=== PATIENT | male | born 1975 | race Caucasian/White ===

== ENCOUNTER 2017-08-25 09:09 | Emergency (ER) | payer OTHER ==
[~2017-08-25] VITALS: Ht 177.8 cm; Wt 99.8 kg
[2017-08-25 09:23] LABS: BASO % 0.7 % (0.0-1.0); EOS # 0.2 10*3/uL (0.0-0.4); HEMATOCRIT 44.2 % (42.0-52.0); HEMOGLOBIN 14.8 g/dl (14.0-18.0); LYMPH # 1.2 10*3/uL (1.3-4.4); LYMPH % 22.2 % (27.0-41.0); MEAN CELL VOLUME 90.4 fl (80.0-94.0); MEAN CORPUSCULAR HGB 30.3 pg (27.0-31.0); MEAN CORPUSCULAR HGB CONC 33.5 g/dl (33.0-37.0); MEAN PLATELET VOLUME 11.1 fl (9.6-12.3); MONO # 0.4 10*3/uL (0.1-1.0); MONO % 6.5 % (3.0-9.0); NEUT # 3.8 10*3/uL (2.3-7.9); NEUT % 67.4 % (47.0-73.0); PLATELET COUNT AUTOMATED 228 10*3/uL (130-400); RED BLOOD COUNT 4.89 10*6/uL (4.50-5.90); WHITE BLOOD COUNT 5.6 10*3/uL (4.8-10.8)
[2017-08-25] MEDS ORDERED: METFORMIN1000 MG PO (09:31)
[2017-08-25 09:32] LABS: ACT PARTIAL THROMBO TIME 41.9 SECONDS (20.8-31.5); INTERNATIONAL NORM RATIO 3.8 (2.0-3.5)
[2017-08-25] MEDS ORDERED: PREVACID30 M2 PO (09:32)
[2017-08-25] MEDS ORDERED: TOPIRAMATE50 M2 PO (09:33)
[2017-08-25] MEDS ORDERED: LEVOTHYROXINE50 MCG PO (09:34)
[2017-08-25] MEDS ORDERED: LOPRESSOR25 MG PO (09:36)
[2017-08-25] MEDS ORDERED: ASPIRIN CHEWABL81 MG PO (09:36)
[2017-08-25] MEDS ORDERED: LIPITOR20 MG PO (09:36)
[2017-08-25] MEDS ORDERED: COUMADIN4 M2 PO (09:37)
[2017-08-25 09:39] LABS: ALBUMIN 3.7 gm/dl (3.1-4.5); ALKALINE PHOSPHATASE 75 U/L (45-117); BUN 11 mg/dl (7-24); CHLORIDE 110 mmol/L (98-107); CREATININE 1.05 mg/dL (0.70-1.30); MAGNESIUM 1.7 mg/dL (1.5-2.1); SGOT/AST 45 IU/L (3-35); SGPT/ALT 65 U/L (12-78); SODIUM 139 mmol/L (136-145); TOTAL PROTEIN 7.5 gm/dL (6.4-8.2); TROPONIN I < 0.015 ng/ml (<0.045)
== END 2017-08-25 13:02 | disposition home or self-care (01) ==
LOC: ED 09:09
PROVIDERS: Emergency Medicine
DX: R07.89 Other chest pain (principal); R51 Headache; R79.89 Other specified abnormal findings of blood chemistry; I10 Essential (primary) hypertension; E11.9 Type 2 diabetes mellitus without complications